=== PATIENT | female | born 1995 | race Caucasian/White ===

== ENCOUNTER 2016-10-31 17:35 | Emergency (ER) | payer OTHER ==
[~2016-10-31] VITALS: Ht 154.9 cm; Wt 95.2 kg
[~2016-10-31 17:35] MED LIST: C-500500 MG; PRENATAL-FOLIC1 EACH PO
== END 2016-10-31 18:38 | disposition home or self-care (01) ==
LOC: ED 17:35
DX: G43.909 Migraine, unspecified, not intractable, without status migrainosus (principal); Z88.1 Allergy status to other antibiotic agents
CPT/HCPCS: 96374; 96375; 99283; J1200; J1885; J2765

== ENCOUNTER 2019-03-12 12:26 | Observation (INO) | payer OTHER ==
[~2019-03-12] VITALS: Ht 154.9 cm; Wt 99.0 kg
--- NOTE | 2019-03-12 17:17 | NUR ---
PATIENT ADMITTED TO MED SURG. PATIENT IS NPO, SCD'S IN PLACE. LR INFUSING AT 125ML/HR TO LEFT AC. PATIENT REPORTS MINIMAL ABDOMINAL DISCOMFORT 3-4/10 AND DENIES NEEDING MEDICATIONS AT THIS TIME.
--- NOTE | 2019-03-12 18:27 | NUR ---
DR. ARREDONDO IN TO SEE PATIENT. PATIENT TO BE NPO AT MIDNIGHT, PLAN FOR SURGERY TOMORROW TO FOLLOW. PATIENT IS HAVING CLEAR LIQUIDS AT THIS TIME.
--- NOTE | 2019-03-12 20:14 | NUR ---
SURGERY CONSENT SIGNED, DR ARREDONDO HERE EARLIER TO ASSESS PT. PT TO BE NPO AFTER MIDNIGHT, PT AWARE. IS AT BEDSIDE, SCDS ON. TOLERATING CLEAR LIQUIDS, VOIDING QS CLEAR URINE. IVF INFUSING LAC. NO C/O CORADO OR N/V. COOPERATIVE WITH ASSESSMENT
--- NOTE | 2019-03-12 20:15 | EKG ---
[facility] [address] [facility] [place], [place] [address] Signed Unusual P axis, possible ectopic atrial tachycardia Abnormal ECG No previous ECGs available Confirmed by DANIEL JOHNSON DO ([id number]) on 03/12/2019 8:15:48 PM Electronically Signed By: DANIEL JOHNSON DO 03/12/19 2015 PATIENT NAME: LACY ZAVALETA Electrocardiogram DATE OF : [birth year] PHYSICIAN: DANIEL JOHNSON DO REPORT #: [id number] REPORT IS CONFIDENTIAL AND NOT TO BE RELEASED WITHOUT AUTHORIZATION
--- NOTE | 2019-03-12 23:04 | NUR ---
RESTING, NO C/O PAIN OR N/V, IVF INFUSING, CALL LIGHT AT BEDSIDE, FAMILY IN ROOM
--- NOTE | 2019-03-13 01:29 | NUR ---
awakes easily, no c/o abd pain or n/v. Up to br voiding qs yellow urine. IVf infusing, NPO since midnight, oral care done by self. turns self in bed, call light at bedside. scds off at her requests,
--- NOTE | 2019-03-13 05:01 | NUR ---
PT HAS SLEPT MOST OF THIS SHIFT. NPO SINCE MIDNIGHT FOR AM SURGERY. SWABS AT BEDSIDE, PT DOES OWN ORAL CARE. INDEPENDENT IN ROOM. HAS DENIED NEED FOR PAIN MEDS OR N/V. HAS TOLERATED IVF WELL AND IV ABX. VOIDING LARGE AMOUNTS OF CLEAR YELLOW URINE. CALL LIGHT AT BEDSIDE, SCDS ON. FAMILY AT BEDSIDE
--- NOTE | 2019-03-13 06:44 | NUR ---
PT HAS SLEPT MOST OF THIS SHIFT. NPO SINCE MIDNIGHT FOR AM SURGERY. SWABS AT BEDSIDE, PT DOES OWN ORAL CARE. INDEPENDENT IN ROOM. HAS DENIED NEED FOR PAIN MEDS OR N/V. HAS TOLERATED IVF WELL AND IV ABX. VOIDING LARGE AMOUNTS OF ARA YELLOW URINE. CALL LIGHT AT BEDSIDE, SCDS ON. FAMILY AT BEDSIDEPT HAS SLEPT MOST OF THIS SHIFT. NPO SINCE MIDNIGHT FOR AM SURGERY. SWABS AT BEDSIDE, PT DOES OWN ORAL CARE. INDEPENDENT IN ROOM. HAS DENIED NEED FOR PAIN MEDS OR N/V. HAS TOLERATED IVF WELL AND IV ABX. VOIDING LARGE AMOUNTS OF ARA YELLOW URINE. CALL LIGHT AT BEDSIDE, SCDS ON. FAMILY AT BEDSIDE
--- NOTE | 2019-03-13 07:25 | NUR ---
HANDOFF REPORT RECEIVED FROM DOOR ATTENDANT RN.
--- NOTE | 2019-03-13 08:05 | NUR ---
IV SALINE LOCKED FOR HEBICLEANSE SHOWER.
--- NOTE | 2019-03-13 08:38 | NUR ---
PATIENT TOOK A HEBICLEMS SHOWER.
--- NOTE | 2019-03-13 08:50 | NUR ---
PT RESTING IN BED. PT ON ROOM AIR, LUNG SOUNDS CLEAR. PT DENIES PAIN AT THIS TIME. PT NPO FOR SURGERY, BOWEL TONES ACTIVE. CMS INTACT, WITHOUT EDEMA. IV FLUIDS RESUMED, IV PEPCID GIVEN. DISCUSSED PLAN OF CARE FOR THE DAY. PT DENIES OTHER NEEDS AT THIS TIME.
--- NOTE | 2019-03-13 10:30 | NUR ---
SPOKE WITH PATIENT AND BOYFRIEND MAYLIN IN ROOM. PATIENT LIVES WITH MAYLIN AND TWO YOUNG SONS. SHE PLANS TO RETURN AND FEELS SAFE TO RETURN HOME AT DISCHARGE. SHE IS EMPLOYED. FEELS SHE HAS ALL SHE NEEDS TO RETURN HOME. MAYLIN WILL DRIVE HER HOME. SHE UNDERSTANDS DIAGNOSIS AND POST-OP EXPECTATIONS. WILL FOLLOW NEEDED.
--- NOTE | 2019-03-13 13:48 | NUR ---
PT TO DAYSURGERY WITH RN SALOME. IV ON STRAIGHT TUBING, ANCEF WITH PT FOR PREOP DOSE.
--- NOTE | 2019-03-13 16:02 | NUR ---
03/13/19 1602 Katie Chapman [id number]- PT ARRIVES TO PACU TRYING TO GRAB AT HER FACE AND REMOVE EQUIPMENT. PT REPORTS SHE IS TOO HOT, BLANKETS REMOVED. PT DOES NOT STATE IF SHE IS IN PAIN WHEN ASKED, JUST STATES SHE IS TOO HOT. PT PROVIDED WITH COOL AIR VIA THE OSMANY PAWS.
[2019-03-13] MEDS ORDERED: MOTRIN IB200 MG PO (16:14)
[2019-03-13] MEDS ORDERED: TYLENOL EXTRA500 MG PO (16:14)
[2019-03-13] MEDS ORDERED: PERCOCET 7.5-31 EACH PO (16:16)
--- NOTE | 2019-03-13 16:20 | HP ---
[facility] [address] [place], [place] [address] Signed ADMISSION DATE: 03/12/2019 REASON FOR ADMISSION: Acute calculous cholecystitis. HISTORY OF PRESENT ILLNESS: This obese 23-year-old white woman is admitted to the hospital having presented to the emergency room and evaluated by Dr. Pruitt with upper abdominal and epigastric pain with radiation into the right subscapular area. She has been under the impression she had reflux disease and has been taking Tums and Mylanta over time with little benefit. She presented to the emergency room where she was evaluated with epigastric pain and underwent a gallbladder ultrasound showing at least two gallstones and clinical findings suggestive of acute cholecystitis. This included a CBC with a white count of 14,000, hematocrit of 33. Normal liver enzymes. Negative beta HCG and normal lipase. PAST MEDICAL HISTORY: Rather unremarkable. She takes no medications on an ongoing basis. She has had two children in the past. 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 She is unmarried and has two children. She does not smoke. Does not use alcohol. Occasionally uses marijuana. Since readmission, she has felt somewhat better with rehydration. She still has some back pain on the right side and some epigastric pain. No nausea or vomiting. No fever or chills. REVIEW OF SYSTEMS: Denies any shortness of breath or chest pain. She has had no dysphagia, dysuria, hematemesis, or blood per rectum. PHYSICAL EXAMINATION: GENERAL: This is an obese white woman, who looks to be comfortable at this time. VITAL SIGNS: Temperature is 97.7, pulse 93, respirations 20, blood pressure 110/64. NECK: Shows no thyromegaly or cervical adenopathy. Trachea is midline. Mucous membranes are reasonably moist. CHEST: Clear. HEART: Regular without murmur. ABDOMEN: Obese, but soft. There is epigastric tenderness and right subcostal tenderness, but no mass. No ascites. EXTREMITIES: Show no clubbing, cyanosis, or edema. Sequential compression device Electronically Signed By: AMBIKA ARREDONDO MD 03/13/19 1620 PATIENT NAME: LACY ZAVALETA HISTORY AND PHYSICAL DATE OF : [birth year] REPORT #: [id number] PHYSICIAN: AMBIKA ARREDONDO MD PCP: NO PRIMARY CARE PHYSICIAN REPORT IS CONFIDENTIAL AND NOT TO BE RELEASED WITHOUT AUTHORIZATION [facility] [address] [place], [place] [address] [address] in [address]. LABORATORY STUDIES: Show a white count of 14.1, hematocrit 33, platelets 676,000. Chem profile is normal. Bilirubin is 0.3. Liver enzymes normal. Globulin 3.9, lipase 8. Beta-hCG is negative. I have reviewed her imaging study, which include a gallbladder ultrasound and apparently mobile radiodensity is noted within the gallbladder. The back wall of the gallbladder is visible, which in my view is suggestive of a low-grade inflammation. ASSESSMENT: She has clinical and ultrasonographic evidence of cholelithiasis and probable acute cholecystitis with elevated white count, persistent epigastric and right subcostal pain radiating to the subscapular area. She has been given a gallbladder owners manual and has reviewed it. We discussed the pathophysiology of biliary disease and recommendation of treatment to include cholecystectomy, preferably by laparoscopic approach. The risks of bleeding, infection, bile duct injury, need for open procedure, and other unforeseen complication was reviewed in detail. It is notable she has no other family members with biliary disease including four sisters and two brothers. She is at increased risk on the basis of her obesity and having given childbirth. I think she could handle some clear liquids tonight as she strongly desires and certainly n.p.o. after midnight. She is treated with Ancef q.8 hours and other medications will be initiated as appropriate, anticipating surgery tomorrow. MD CRISTOBAL Escobar/BALJINDERL /[id number] cc: Manas Pruitt MD Electronically Signed By: AMBIKA ARREDONDO MD 03/13/19 1620 PATIENT NAME: LACY ZAVALETA HISTORY AND PHYSICAL DATE OF : [birth year] REPORT #: [id number] PHYSICIAN: AMBIKA ARREDONDO MD PCP: NO PRIMARY CARE PHYSICIAN REPORT IS CONFIDENTIAL AND NOT TO BE RELEASED WITHOUT AUTHORIZATION [facility] [address] [place] [address] Signed Copies: MANAS PRUITT MD ~ Electronically Signed By: AMBIKA ARREDONDO MD 03/13/19 1620 PATIENT NAME: STAR ZAVALETASARIKA MARIEE HISTORY AND PHYSICAL DATE OF : [birth year] REPORT #: [id number] PHYSICIAN: AMBIKA ARREDONDO MD PCP: NO PRIMARY CARE PHYSICIAN REPORT IS CONFIDENTIAL AND NOT TO BE RELEASED WITHOUT AUTHORIZATION
--- NOTE | 2019-03-13 17:06 | NUR ---
PT RECEIVED FROM PACU. PT DROWSY, AROUSABLE TO VOICE. PT COMPLAINT OF FEELING HOT, FAN PROVIDED. PT COMPLAINT OF FEELING NAUSEATED, GIVEN 4 MG IV ZOFRAN. ICE PACKS APPLIED TO ABD. PT ON ROOM AIR, LUNG SOUNDS CLEAR. BOWEL TONES HYPOACTIVE. CMS INTACT, SCDS IN PLACE. VSS. PT PROVIDED SIPS OF WATER. DISCUSSED PLAN OF CARE WITH SPOUSE, UPDATED THAT MAY STAY OVERNIGHT PER DR. ARREDONDO IF CRITERIA ARE NOT MET.
--- NOTE | 2019-03-13 17:59 | NUR ---
PT RESTINGIN BED. PT COMPLAINT OF PAIN 7-8/ TO BACK AND ABD, GIVEN IV TORADOL. VSS. PT CONTINUES TO FEEL "HOT", AFEBRILE, SCDS REMOVED FOR COMFORT. RX PROVIDED TO SPOUS TO BE FILLED, EMPHASIZED THAT AT THIS POINT DISCHARGE IS UNLIKELY DUE TO THE WAY PT IF FEELING, VERBALIZED UNDERSTANDING. PT DENIES OTHER NEEDS AT THIS TIME.
--- NOTE | 2019-03-13 18:41 | NUR ---
PT CONTINUES TO REPORT NAUSEA, REQUESTING SPRITE AND CRACKERS, PROVIDED. PT GIVEN SECOND DOSE OF 4 MG IV ZOFRAN FOR TOTAL OF 8MG ZOFRAN PER ORDER. PT ASSISTED TO BATHROOM, SBA, VOIDED. STERISTRIPS TO UMBILICUS FELL OFF, REPLACED, SECURED WITH GAUZE AND TAPE. PT STATES PAIN IMPROVED AFTER TORADOL. PT DENIES OTHER NEEDS AT THIS TIME.
--- NOTE | 2019-03-13 20:05 | NUR ---
MICROFILM MOUNTER ROUNDING NOTE. PT'S SIGNIFICANT OTHER CALLS AND REQUESTS WARM BLANKET FOR PT. PROVIDED. PT RESTING IN BED ON HER STOMACH, RESPONDS MINIMALLY TO INTERNAL WHOLESALER. THERMOSTAT INCREASED AND SANDWHICH BOXES ORDERED REQUESTED. FURTHER NEEDS DENIED AT THIS TIME. CALL LIGHT IN REACH.
--- NOTE | 2019-03-13 20:29 | NUR ---
Coop with assessment. 4 lap sites w3 of them w ss in place, old drainage, dry. umbilical area lap site with gauze and scant amount of ss drainage. replaced. CINTHIA. burping, denies passing gas at this time. Lungs clear bilat. IV LAC infusing w/o problems. tolerating liquids well, sandwich box given on requests. no further c/o n/v or pain at this time.Up to BR with help, voided 400cc clear yellow urine. call light at bedside, family rooming in
--- NOTE | 2019-03-13 21:44 | NUR ---
coop with assessment. HOB elevated to her comfort. lungs clears bilat , on room air. SL LW intact, flushes well. Large R hip/flank hematoma with edges marked, tender firm to touch. moves leg well, scds in place. L below the knee hematoma marked, tender. foot crompression in place. moves leg well. Pt in bed. Incontinent of urine, dry at this time. No c/o n/v or pain. Tolerating liquids well. Call light at hands reach. family in room, watching tv.
--- NOTE | 2019-03-14 01:06 | NUR ---
up to br voiding large amount of clear yellow urine. Back to be. c/o 10/15 abd pain. Medicated with Ibuprofen 600mg po and 1 Stow tab per pain. lap sites intact, burping, denies passing gas, no bm. Tolerating liquids very well, no further c/o n/v. Call light at hands reach. family in room.
--- NOTE | 2019-03-14 04:11 | NUR ---
resting, laying on her stomach, no distress, resp even and unlabored. No further c/o pain or n/v. family in room
--- NOTE | 2019-03-14 05:18 | NUR ---
Pt has been sleeping most of this shift. Was medicated x1 with Motrin and Percocet per abd pain with good pain, was medicated at begining of shift with Phenergan, effective, no further c/o n/v. 4 abd lap sites intact with old drainage. burping, denies passing gas. up ti br w/o help, voiding large amounts of clear yellow urine, tolerating regular siet and fluids. Family in room. Pt to be dc'd today, family already picked up her dc Rx from retail pharmacy.
--- NOTE | 2019-03-14 06:36 | NUR ---
Resting, no further c/opain. no n/v, has voided Qs, Tolerating diet well
--- NOTE | 2019-03-14 07:03 | NUR ---
PATIENT WAS UP ONCE DURING THE NIGHT, FRESH WATER WAS GIVEN CALL LIGHT IN REACH
--- NOTE | 2019-03-14 07:20 | NUR ---
BEDSIDE HANDOFF REPORT RECEIVED FROM CONTRACT SERVICEMAN RN. PT DRESSED AND MOVING INDEPENDENTLY IN THE ROOM. PT LOOKING FORWARD TO DISCHARGE THIS AM. DISCUSSED EATING BREAKFAST THIS MORNING AND THEN TO DISCHARGE SHORTLY AFTER. PT DENIES OTHER NEEDS AT THIS TIME.
--- NOTE | 2019-03-14 08:57 | NUR ---
PT RESTINGIN BED, SPOUSE AT BEDIDE, AWAITING BREAKFAST TRAY TO ARRIVE. PT ONR OOM AIR, LUNG SOUNDS CLEAR. PT RATING PAIN 4/10, GIVEN PERCOCET AND MORTIN, DISCUSSED PAIN MANAGEMENT AT HOME. BOWEL TONES ACTIVE, DENIES NAUSEA. LAP SITES X4, GAUZE TO UMBILICAL SITE WITH DRIED DRAINAGE. DISCUSSED WOUND CARE AND SHOWERING WITH PT. CMS INTACT, WITHOUT EDEMA. DR. ARREDONDO WISHES TO SEE PT BEFORE DISCHARGE. PT DENIES OTHER NEEDS AT THIS TIME.
--- NOTE | 2019-03-14 10:14 | OR ---
[facility] [address] [place], [place] [address] Signed DATE OF OPERATION: 03/13/2019 SURGEON: Ambika Arredondo MD PREOPERATIVE DIAGNOSIS: Acute calculous cholecystitis. POSTOPERATIVE DIAGNOSIS: Acute calculous cholecystitis. PROCEDURES: 1. Laparoscopic cholecystectomy with intraoperative cholangiogram. 2. Surgeon-directed fluoroscopy. ANESTHESIA: General endotracheal, Gladis Nelson CRNA, and local 20 mL of 0.25% Marcaine with epinephrine. INDICATION: This 23-year-old white woman presented to the emergency room yesterday with several days of increasing right upper abdominal and right subscapular pain. She has had similar episodes in the past. Evaluation includes a gallbladder ultrasound, which showed multiple gallstones in the gallbladder. She has been admitted to the hospital, fluid resuscitated and given intravenous antibiotics, parenteral pain medication and so forth and is now ready to undergo cholecystectomy. The risks of bleeding, infection, bile duct injury, need for open procedure, failure to cure her symptoms, and need for other indicated procedures was all reviewed with her. She understands and wished to proceed. FINDINGS: Indeed the gallbladder was acutely inflamed. There was no sign of gangrene, however. The liver was normal. Intraoperative cholangiogram was normal. There were three yellow mulberry gallstones noted in the gallbladder once it was excised. Cholangiogram was normal. There were no other findings of concern. DESCRIPTION OF PROCEDURE: The patient was brought to the operating room, given a general endotracheal anesthetic. Preoperative antibiotic Ancef had been given. Sequential compression device stockings were used and heparin subcutaneously administered. After satisfactory general endotracheal anesthesia, the abdomen was prepared with Electronically Signed By: AMBIKA ARREDONDO MD 03/14/19 1014 PATIENT NAME: LACY ZAVALETA OPERATIVE REPORT DATE OF : [birth year] REPORT #: [id number] PHYSICIAN: AMBIKA ARREDONDO MD PCP: NO PRIMARY CARE PHYSICIAN REPORT IS CONFIDENTIAL AND NOT TO BE RELEASED WITHOUT AUTHORIZATION [facility] [address] [place], [place] [address] Signed chlorhexidine solution and draped sterilely. An infraumbilical incision was made and using an open Nory cannula technique, pneumoperitoneum was achieved to a level of 14 mmHg of carbon dioxide gas. Intraabdominal inspection showed no sign of ascites or carcinomatosis. Three additional trocars were placed in usual configuration in the subxiphoid, right midclavicular, and right anterior axillary line. The gallbladder was elevated cephalad and retracted laterally and using blunt and electrocautery dissection, the triangle of Calot was dissected free. It appeared that one of the 1 cm stones was wedged in the infundibulum at the cystic duct junction. Ultimately, the cystic duct was well defined from the surrounding soft tissue. Clips were applied to the cystic arterial branches as necessary. The cystic duct was milked in a retrograde fashion allowing for application of a hemoclip much higher. A transverse choledochotomy was made in the cystic duct and using intraoperative cholangiography, free flow of contrast was noted into the biliary tree with prompt emptying into the duodenum. There was no sign of biliary defect, filling defect, biliary anomalies, or other abnormality. The catheter was removed and the cystic duct was triply clipped and divided and the gallbladder was then dissected free in a retrograde fashion using electrocautery. The gallbladder was placed in an endobag and extracted through the infraumbilical port site without problem, opened on the back table and found to have subacute inflammatory changes as well as three yellow mulberry gallstones about a centimeter in size each. Irrigation was undertaken with subhepatic space. There was no sign of bile leak, bleeding, or other problems. The trocars were removed under direct visualization showing no bleeding. The infraumbilical fascial incision was reapproximated with interrupted 3-0 Vicryl suture. All wounds copiously irrigated with saline solution. Skin closed with interrupted 3-0 Vicryl. Steri-Strips were applied. The patient was ultimately extubated and transferred to recovery room in good condition having suffered no complications. Sponge, needle, and instrument counts were reported as correct x3. Ambika Arredondo MD JM/MODL /[id number] Copies: Electronically Signed By: AMBIKA ARREDONDO MD 03/14/19 1014 PATIENT NAME: LACY ZAVALETA OPERATIVE REPORT DATE OF : [birth year] REPORT #: [id number] PHYSICIAN: AMBIKA ARREDONDO MD PCP: NO PRIMARY CARE PHYSICIAN REPORT IS CONFIDENTIAL AND NOT TO BE RELEASED WITHOUT AUTHORIZATION [facility] [address] [place] [id number] Signed ~ Electronically Signed By: AMBIKA ARREDONDO MD 03/14/19 1014 PATIENT NAME: WAQARLACY OPERATIVE REPORT DATE OF : [birth year] REPORT #: [id number] PHYSICIAN: AMBIKA ARREDONDO MD PCP: NO PRIMARY CARE PHYSICIAN REPORT IS CONFIDENTIAL AND NOT TO BE RELEASED WITHOUT AUTHORIZATION
--- NOTE | 2019-03-15 14:20 | DS ---
[facility] [address] [place], [place] [address] Signed ADMISSION DATE: 03/12/2019 DISCHARGE DATE: 03/14/2019 REASON FOR ADMISSION: This obese 23-year-old white woman was admitted to the hospital, having presented to the emergency room, evaluated by Dr. Pruitt with upper abdominal pain. Evaluation included a gallbladder ultrasound showing gallstones and clinical findings of acute cholecystitis. Liver enzymes are normal. White count was elevated to 14,000. PERTINENT PHYSICAL EXAMINATION: GENERAL: On admission, obese white woman, looking comfortable overall. VITAL SIGNS: Temperature 97.7, pulse 93, respirations 20, and blood pressure 110/64. CHEST: Clear. HEART: Regular without murmur. ABDOMEN: Obese but soft. There is tenderness in epigastric and right subcostal area. There is no mass. No ascites. HOSPITAL COURSE: She is admitted, given intravenous fluid resuscitation, parenteral pain medication, IV antibiotics. On March 13, 2019, underwent laparoscopic cholecystectomy with intraoperative cholangiogram. She was found to have an acutely inflamed gallbladder. There were three yellow 1 cm mulberry style gallstones. Cholangiogram was normal. She tolerated procedure well, but postoperatively had a fair amount of nausea and on that basis, was kept in the hospital overnight. She is able to be discharged today, March 14, 2019, as she was tolerating regular diet well. DISCHARGE MEDICATIONS: Her discharge medications will include: 1. Motrin 600 mg p.o. q.6 hours p.r.n. pain, #30. 2. Tylenol 1000 mg p.o. q.6 hours p.r.n. pain. 3. Percocet 7.5/325 one to two p.o. q.4 hours as needed for pain, #10. FOLLOWUP PLANS: She is return to see me in approximately 4 weeks. She is able to return to work in a week. Paperwork was written to that effect. She should lift no more than 20 pounds for the next 2 weeks. DISCHARGE DIAGNOSES: 1. Acute calculous cholecystitis. 2. Status post laparoscopic cholecystectomy with intraoperative cholangiogram on March 13, 2019. Electronically Signed By: AMBIKA ARREDONDO MD 03/15/19 1420 PATIENT NAME: LACY ZAVALETA DISCHARGE SUMMARY DATE OF : [birth year] REPORT #: [id number] PHYSICIAN: AMBIKA ARREDONDO MD PCP: NO PRIMARY CARE PHYSICIAN REPORT IS CONFIDENTIAL AND NOT TO BE RELEASED WITHOUT AUTHORIZATION [address] [address] Signed 3. Obesity. MD CRISTOBAL Escobar/MODL /[id number] cc: Manas Pruitt MD Copies: MANAS PRUITT MD ~ Electronically Signed By: AMBIKA ARREDONDO MD 03/15/19 1420 PATIENT NAME: LACY ZAVALETA DISCHARGE SUMMARY DATE OF : [birth year] REPORT #: [id number] PHYSICIAN: AMBIKA ARREDONDO MD PCP: NO PRIMARY CARE PHYSICIAN REPORT IS CONFIDENTIAL AND NOT TO BE RELEASED WITHOUT AUTHORIZATION
--- NOTE | 2019-03-17 13:24 | PATH ---
[facility] [address] [place], [place] [address] Signed SPECIMEN(S): A GALLBLADDER AND STONES SPECIMEN SOURCE: A. GALLBLADDER AND STONES CLINICAL HISTORY: RUQ and epigastric pain. FINAL PATHOLOGIC DIAGNOSIS: Gallbladder, cholecystectomy: - Moderate acute and chronic cholecystitis. - Cholelithiasis. - Cholesterolosis. PEARLA:gorge:C2NR MICROSCOPIC EXAMINATION: Histologic sections of all submitted blocks are examined by light microscopy. These findings, together with the gross examination, support the pathologic diagnosis. GROSS DESCRIPTION: The specimen is received in a formalin-filled specimen container labeled "SE". A previously opened gallbladder is 6.5 x 2.5 cm. The serosa is smooth and green flores. The clamped cystic duct surgical margin is patent. The wall is fatty and focally thickened to 1 cm. The mucosa is flores and velvety with scattered slightly raised yellow flecks. There is no nodule or induration. Within the specimen container are several nodular yellow calculi up to 0.8 cm. Three energy conservation representative sections are submitted in cassette (A1). GW (under the direct supervision of a pathologist) The Gross Description was prepared using a voice recognition system. The report was reviewed for accuracy; however, sound-alike word errors, addition and/or deletions may occur. If there is any question about this report, please contact Client Services. PERFORMING LABORATORY: The technical component was performed by [facility], [address] [place] [id number] (Superintendent Plant: Ivis Romero MD; CLIA# [id number]). [facility] [address] [address] (Superintendent Plant: Toro Dietz MD; CLIA# PATIENT NAME: LACY ZAVALETA PATHOLOGY DATE OF : [birth year] REPORT #: [id number] PHYSICIAN: [facility] PCP: NO PRIMARY CARE PHYSICIAN REPORT IS CONFIDENTIAL AND NOT TO BE RELEASED WITHOUT AUTHORIZATION [address] [place] [address] Signed [id number]). Diagnostician: Toro Dietz MD Pathologist Electronically Signed 03/17/2019 Copies: ~ PATIENT NAME: LACY ZAVALETA PATHOLOGY DATE OF : [birth year] REPORT #: [id number] PHYSICIAN: [facility] PCP: NO PRIMARY CARE PHYSICIAN REPORT IS CONFIDENTIAL AND NOT TO BE RELEASED WITHOUT AUTHORIZATION
== END 2019-03-14 10:25 | disposition home or self-care (01) ==
LOC: ED 12:26 → MS 12:28
PROVIDERS: ADMIT Surgery
PROC: BF101ZZ Fluoroscopy of Bile Ducts using Low Osmolar Contrast (ICD-10-PCS; 2019-03-13)
PROC: 0FT44ZZ Resection of Gallbladder, Percutaneous Endoscopic Approach (ICD-10-PCS; principal; 2019-03-13 13:00)
DX: K80.12 Calculus of gallbladder with acute and chronic cholecystitis without obstruction (principal); E66.01 Morbid (severe) obesity due to excess calories; Z88.2 Allergy status to sulfonamides; Z68.41 Body mass index [BMI] 40.0-44.9, adult
CPT/HCPCS: 00790; 36415; 74300; 76705; 80053; 83690; 84703; 85025; 93005; 93010; 96361; 96372; 96374; 96375; 96376; 99285-25; A9270; G0378; J0131; J0330; J0690; J1100; J1644; J1885; J2060; J2405; J2550; J2704; J3010; J7030; J7121; Q9967

== ENCOUNTER 2020-09-13 15:30 | Emergency (ER) | payer OTHER ==
[~2020-09-13] VITALS: Ht 154.9 cm; Wt 95.2 kg
[~2020-09-13 15:30] MED LIST changes: +MOTRIN IB200 MG PO; +PERCOCET 7.5-31 EACH PO; +TYLENOL EXTRA500 MG PO
--- NOTE | 2020-09-14 13:34 | EKG ---
[facility] [address] [place] [address] Signed Normal sinus rhythm with sinus arrhythmia Normal ECG When compared with ECG of 12-MAR-2019 12:30, Sinus rhythm has replaced Ectopic atrial rhythm Confirmed by SUSHIL MARSHALL MD ([id number]) on 09/14/2020 1:34:22 PM Electronically Signed By: SUSHIL MARSHALL MD 09/14/20 1334 PATIENT NAME: WAQARLACYLUIS MARIEE Electrocardiogram DATE OF : [birth year] PHYSICIAN: SUSHIL MARSHALL MD REPORT #: [id number] REPORT IS CONFIDENTIAL AND NOT TO BE RELEASED WITHOUT AUTHORIZATION
== END 2020-09-13 21:02 | disposition home or self-care (01) ==
LOC: ED 15:30
DX: R00.2 Palpitations (principal); Z88.1 Allergy status to other antibiotic agents
CPT/HCPCS: 71045; 80053; 83735; 84484; 84703; 85025; 85379; 93005; 93010; 99285-25

== ENCOUNTER 2022-12-25 21:25 | Emergency (ER) | payer OTHER ==
[~2022-12-25] VITALS: Ht 154.9 cm; Wt 97.0 kg
--- OUTSIDE RECORDS SUMMARY | ~2022-12-25 | XMS | Continuity of Care Document ---
Demographics + + + | Address | [address] | | | [place] [address] | + + + | Preferred Language | Unknown | + + + | Marital Status | | + + + | Mandaen Affiliation | Unknown | + + + | Race | White | + + + | Ethnic Group | Not or | + + + Author + + + | Author | [facility] | + + + | Organization | [facility] | + + + | Address | [address] | | | [place] [address] | + + + | Phone | | + + + Care Team Providers + + + + | Care Pilates Coordinator Name | Role | Phone | + + + + Unavailable | Unavailable | + + + + Unavailable | Unavailable | + + + + Allergies and Intolerances + + + + + + | date | description | facility | reaction | severity | + + + + + + | (no date) | Clindamycin [facility] | (no reaction) | (no severity) | [facility] | | | + + + + + + | (no date) | Clindamycin | [facility] | (no reaction) | (no severity) | [facility] | | | + + + + + + | (no date) | Clindamycin | [facility] | (no reaction) | (no severity) | | | [facility] | | | + + + + + + | (no date) | clindamycin | [facility] | (no reaction) | (no severity) | + + + + + + Encounters No information. Functional Status No information. Immunizations + + + + | date | description | facility | + + + + | 2022-12-21 00:00 | Influenza, Injectable, | [facility] | | | Quadrivalent | | + + + + Medications + + + + | date | description | facility | + + + + | 2019-03-13 00:00 | OXYCODONE | [facility] | | | HCL/ACETAMINOPHEN | | + + + + | 2019-03-13 00:00 | ACETAMINOPHEN | [facility] | + + + + | 2022-12-21 00:00 | ASCORBIC ACID | [facility] | + + + + | 2019-03-13 00:00 | IBUPROFEN | [facility] | + + + + Problems + + + + | date | description | facility | + + + + | 2016-10-31 00:00 | Migraine headache | [facility] | + + + + | 2016-10-31 00:00 | Headache | [facility] | + + + + | 2019-03-12 00:00 | Biliary colic | [facility] | + + + + | 2020-09-13 00:00 | Palpitations | [facility] | + + + + | 2020-09-13 00:00 | Chest pain | [facility] | + + + + | 2022-11-13 19:16 | ENCOUNTER FOR SUPRVSN OF | [facility] | | | NORMAL PREGNANC | | + + + + | 2022-11-13 19:16 | ENCOUNTER FOR SUPRVSN OF | [facility] | | | NORMAL , FIRST | | | | TRIMESTER | | + + + + | 2022-11-13 19:30 | ENCOUNTER FOR SUPRVSN OF | [facility] | | | NORMAL PREGNANC | | + + + + | 2022-12-04 07:47 | PALPITATIONS | [facility] | + + + + | 2022-12-04 08:00 | PALPITATIONS | [facility] | + + + + | 2022-12-21 00:00 | Patient left without being | [facility] | | | seen | | + + + + Procedures No information. Results/Labs No information. Social History No information. Vital Signs + + + +---------+ | date | measurement | value | units | + + + +---------+ | 2022-12-21 00:00 | BMI | 41.2 | kg/m2 | + + + +---------+ | 2022-12-21 00:00 | BP_diastolic | 00 | mmHg | + + + +---------+ | 2022-12-21 00:00 | BP_systolic | 00 | mmHg | + + + +---------+ | 2022-12-21 00:00 | heart_rate | 00 | /min | + + + +---------+ | 2022-12-21 00:00 | height_metric | 154.94 | cm | + + + +---------+ | 2022-12-21 00:00 | height_standard | 61 | in | + + + +---------+ | 2022-12-21 00:00 | o2_saturation | 00 | % | + + + +---------+ | 2022-12-21 00:00 | respiration_rate | 00 | /min | + + + +---------+ | 2022-12-21 00:00 | temperature_metric | -17.78 | C | | | | | | + + + +---------+ | 2022-12-21 00:00 | | 0 | F | | | temperature_standar | | | | | d | | | + + + +---------+ | 2022-12-21 00:00 | weight_metric | 98.8 | kg | + + + +---------+ | 2022-12-21 00:00 | weight_standard | 217.82 | lb | + + + +---------+"
--- OUTSIDE RECORDS SUMMARY | ~2022-12-25 | XMS | Continuity of Care Document ---
Demographics + + + | Address | [address] | | | [place] [address] | + + + | Preferred Language | Unknown | + + + | Marital Status | | + + + | Worship Affiliation | Unknown | + + + | Race | White | + + + | Ethnic Group | Not or | + + + Author + + + | Author | [facility] | + + + | Organization | [facility] | + + + | Address | [address] | | | [place] [address] | + + + | Phone | | + + + Care Team Providers + + + + | Care Kiln Car Repairer Name | Role | Phone | + [...] 2022-12-21 00:00 | Influenza, Injectable, | [facility] | | | Quadrivalent | | + + + + Medications + + + + | date | description | facility | + + + + | 2019-03-13 00:00 | OXYCODONE | [facility] | | | HCL/ACETAMINOPHEN | | + + + + | 2019-03-13 00:00 | ACETAMINOPHEN | [facility] | + + + + | 2022-12-21 00:00 | ASCORBIC ACID | [facility] | + + + + | 2019-03-13 00:00 | IBUPROFEN | [facility] | + + + + Problems + + + + | date | description | facility | + + + + | 2016-10-31 00:00 | Migraine headache | [facility] | + + + + | 2016-10-31 00:00 | Headache | [facility] | + + + + | 2019-03-12 00:00 | Biliary colic | [facility] | + + + + | 2020-09-13 00:00 | Palpitations | [facility] | + + + + | 2020-09-13 00:00 | Chest pain | [facility] | + + + + | [...] | Patient left without being | [facility] | | | seen | | + [...]
--- OUTSIDE RECORDS SUMMARY | 2022-12-25 21:30 | XMS ---
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 Jun VISIT COUNT (12 MO.) 2 [facility] TOTAL 2 NOTE: Visits indicate total known visits. ED/UCC VISIT TRACKING (12 MO.) 12/25/2022 21:26 [facility] TYPE: Emergency COMPLAINT: - DENTAL PAIN 12/21/2022 11:31 [facility] TYPE: Emergency COMPLAINT: - R EAR PAIN INPATIENT VISIT TRACKING (12 MO.) No inpatient visits to display in this time frame [email or web address]
[2022-12-25] MEDS ORDERED: AMOX TR-K CLV1 EAC1 PO (21:39)
[2022-12-25] MEDS ORDERED: PAXLOVID 300-11 EACH PO (21:40)
[2022-12-25] MEDS ORDERED: FEROSUL325 MG PO (21:40)
[2022-12-25] MEDS ORDERED: CEPHALEXIN500 M1 PO (22:18)
[2022-12-25 22:27] VITALS: BP 123/75
== END 2022-12-25 22:28 | disposition home or self-care (01) ==
LOC: ED 21:25
DX: K08.89 Other specified disorders of teeth and supporting structures (principal); K02.9 Dental caries, unspecified; Z88.1 Allergy status to other antibiotic agents
CPT/HCPCS: 99282; A9270

== ENCOUNTER 2023-05-23 00:01 | Inpatient (IN) | payer OTHER ==
[~2023-05-23] VITALS: Ht 154.9 cm; Wt 115.2 kg
[~2023-05-23 00:01] MED LIST changes: +AMOX TR-K CLV1 EAC1 PO; +CALCIUM CARBONATE 500 MG CHEW PO PRN; +CEPHALEXIN500 M1 PO; +FEROSUL325 MG PO; +LACTATED RINGER'S 1,000 ML IV SCH; +MAGNESIUM HYDROXIDE/AL HYDROX 30 ML CUP PO PRN; +PAXLOVID 300-11 EACH PO; +miSOPROStoL 25 MCG TAB PV SCH
[2023-05-23] MEDS ORDERED: LACTATED RINGER'S 1,000 ML IV PRN (00:15)
[2023-05-23] MEDS ORDERED: OXYTOCIN/DEXTROSE 5% 20 UNITS/100 ML BAG IV SCH (00:15)
[2023-05-23 00:43] LABS: HEMATOCRIT 33.5 % (35.0-50.0); HEMOGLOBIN 11.1 g/dL (12.0-18.0); MCH 24.5 (27-36); MCHC 33.2 g/dl (30-36); RBC 4.53 M/ul (4.3-5.7); RDW 15.8 (10.5-15.0)
[2023-05-23 01:00] LABS: AMPHETAMINES, URINE NEGATIVE (NEGATIVE); BARBITURATES, URINE NEGATIVE (NEGATIVE); BENZODIAZEPINE, URINE NEGATIVE (NEGATIVE); BUPRENORPHINE, URINE NEGATIVE (NEGATIVE); CANNABINOID, URINE NEGATIVE (NEGATIVE); COCAINE, URINE NEGATIVE (NEGATIVE); ECSTASY, URINE NEGATIVE (NEGATIVE); FENTANYL, URINE NEGATIVE (NEGATIVE); METHADONE, URINE NEGATIVE (NEGATIVE); OPIATES, URINE NEGATIVE (NEGATIVE); OXYCODONE, URINE NEGATIVE (NEGATIVE); PHENCYCLIDINE, URINE NEGATIVE (NEGATIVE)
[2023-05-23 01:18] LABS: ABO A; RH POSITIVE
[2023-05-23 01:19] LABS: ANTIBODY SCREEN NEGATIVE
[2023-05-23 02:44] VITALS: BP 140/82
--- NOTE | 2023-05-23 05:09 | PR ---
[facility] [address] [place], [place] [address] Signed Progress Notes IP Datetime Report Generated by EDUARD: 05/23/2023 05:09 PROGRESS NOTES: [id number] Impression: Normal Progression of Labor; Non-reassuring Heart Rate Plan: Deliver- Section Informed Consent Obtain: Section Delivery VITAL SIGNS: [id number] Vital Signs: Reviewed; Within Normal Limits EXAM: [id number] Effacement: 60 Station: -3 Contractions: q2-4 min MEMBRANES: [id number] Comments: Pt w/ initially improved FHT following AROM but now having recurrent deep variables. Pt recently ruptured for very large amount of clear fluid and do not think that amnioinfusion would be indicated at this point. Recommend proceeding with primary LTCS. Pt and understand and agree. OR crew notified and en route. Consents signed. Ancef 3 g. Pt w/ Azithromycin allergy and will not administer. GBS negative. All questions answered to the best of my ability and to pt's apparent satisfaction. FETUS A: [id number] FHR Baseline: 160 Variability: Moderate 6-25bpm Accelerations: None Decelerations: Variable FHR Category: Category II Presentation: Vertex FETUS B: [id number] Signing Physician: Jerri Zaman DO Copies: ~ *Electronically Signed* 05/23/23 0503 JERRI ZAMAN (FERNANDO) DO PATIENT NAME: LACY ACEVES PROGRESS NOTE DATE OF : [birth year] PHYSICIAN: JERRI ZAMAN (JD) DO RPT #: [id number] REPORT IS CONFIDENTIAL AND NOT TO BE RELEASED WITHOUT AUTHORIZATION
[2023-05-23] MEDS ORDERED: SOD+POT BICARB/CITRIC ACID 2 EA TABLET.EFF PO ONE (05:15)
[2023-05-23] MEDS ORDERED: LIDOCAINE HCL 2% 5 ML SDV ONE (05:22)
[2023-05-23] MEDS ORDERED: BUPIVACAINE 0.75% IN DEXTROSE 2 ML AMP ONE (05:22)
[2023-05-23] MEDS ORDERED: ondansetron HCL 4 MG/2 ML VIAL ONE (05:22)
[2023-05-23] MEDS ORDERED: MORPHINE SULFATE 1 MG/ML VIAL ONE (05:22)
[2023-05-23] MEDS ORDERED: OXYTOCIN 10 UNITS/ML VIAL ONE ×2 (05:22→06:02)
[2023-05-23] MEDS ORDERED: fentaNYL citrate 100 MCG/2 ML VIAL ONE (05:22)
[2023-05-23] MEDS ORDERED: LACTATED RINGER'S 1,000 ML IV ONE (06:01)
--- NOTE | 2023-05-23 06:09 | NUR ---
RT CALLED TO BE PRESENT FOR FOR BABY HAVING DECELLS. PRIOR TO DELIVERY NEOPUFF SET AT 25/4, SUCTION AT 100. ALL RESUCITATION EQUIPMENT EITHER SET UP OR PRESENT AT BEDSIDE. UPON ARRIVAL COLOR WAS BLUE, MODERATE CRY. SUCTIONED MOUTH AND NOSE WHILE BEING STIMULATED AND THEN PLACED OXIMETER ON RIGHT WRIST. SpO2 STAYED WITHIN NRP RANGES WITH NO NEED FOR O2. AT 5 MINUTE KEN COLOR SIGNIFICANTLY IMPROVED WITH STRONG CRY. RN RELEASED ME.
[2023-05-23] MEDS ORDERED: NALOXONE HCL 0.4 MG SYR IV PRN (06:15)
[2023-05-23] MEDS ORDERED: DEXAMETHASONE SOD PHOS 4 MG/ML VIAL ONE (06:15)
[2023-05-23] MEDS ORDERED: KETOROLAC TROMETHAMINE 30 MG/ML VIAL IV PRN (06:15)
[2023-05-23] MEDS ORDERED: ondansetron HCL 4 MG/2 ML VIAL IV PRN ×2 (06:15→07:00)
[2023-05-23] MEDS ORDERED: Ropivacaine HCl 0.5% 30 ML VIAL ONE (06:15)
[2023-05-23] MEDS ORDERED: SODIUM CHLORIDE 0.9% 20 ML IV ONE (06:15)
[2023-05-23] MEDS ORDERED: HYDROmorphone HCL 1 MG/ML SYR IV PRN (06:15)
[2023-05-23] MEDS ORDERED: PROCHLORPERAZINE EDISYLATE 10 MG/2 ML VIAL IV PRN ×2 (06:15→07:00)
[2023-05-23] MEDS ORDERED: diphenhydrAMINE HCL 50 MG/ML VIAL IV PRN (06:15)
[2023-05-23] MEDS ORDERED: LACTATED RINGER'S 1,000 ML IV SCH (06:52)
[2023-05-23] MEDS ORDERED: PROMETHAZINE HCL 25 MG SUPP PR PRN (07:00)
[2023-05-23] MEDS ORDERED: SIMETHICONE 125 MG TABLET CHEWABLE PO SCH (07:00)
[2023-05-23] MEDS ORDERED: PROMETHAZINE HCL 25 MG TAB PO PRN (07:00)
[2023-05-23] MEDS ORDERED: OXYCODONE HCL 5 MG TAB PO PRN (07:00)
[2023-05-23] MEDS ORDERED: bisacodyL 10 MG SUPP PR PRN (07:00)
[2023-05-23] MEDS ORDERED: OXYCODONE/APAP 5/325 TAB PO PRN (07:00)
[2023-05-23] MEDS ORDERED: CEFAZOLIN SODIUM 3 GM/30 ML SYR IV SCH (07:00)
[2023-05-23] MEDS ORDERED: METOCLOPRAMIDE HCL 10 MG/2 ML SDV IV PRN (07:00)
[2023-05-23] MEDS ORDERED: HYDROCODONE/ACETA 5/325 TAB PO PRN (07:00)
[2023-05-23] MEDS ORDERED: OXYTOCIN/0.9 % SODIUM CHLORIDE 500 ML IV SCH (07:00)
--- NOTE | 2023-05-23 07:09 | NUR ---
05/23/23 0709 Karen Porter 0649 PT ARRIVED TO ROOM WITH [facility] RN AT BEDSIDE. VSS. PT DENIES CONCERNS, HOB INCREASED SLIGHTLY AND PT DENIES PAIN. 0655 BABY ON CHEST WITH PT. HOB INCREASED AND PT CONTINUES TO DENY CONCERNS.
[2023-05-23 07:24] VITALS: BP 122/67
[2023-05-23] MEDS ORDERED: KETOROLAC TROMETHAMINE 30 MG/ML VIAL IV SCH (08:00)
[2023-05-23] MEDS ORDERED: SENNOSIDES/DOCUSATE 1 EA TAB PO SCH (09:00)
[2023-05-23] MEDS ORDERED: ENOXAPARIN SODIUM 40 MG/0.4 ML SYR SUB-Q ONE (17:45)
[2023-05-24] MEDS ORDERED: IBUPROFEN 600 MG TAB PO SCH (02:00)
[2023-05-24 05:24] LABS: HEMATOCRIT 29.8 % (35.0-50.0); HEMOGLOBIN 9.4 g/dL (12.0-18.0); MCH 23.6 (27-36); MCHC 31.6 g/dl (30-36); MCV 74.5 fl (81-99); RDW 15.7 (10.5-15.0)
[2023-05-24] MEDS ORDERED: ENOXAPARIN SODIUM 40 MG/0.4 ML SYR SUB-Q SCH ×2 (06:00→15:00)
--- NOTE | 2023-05-24 09:23 | PR ---
[facility] [address] [place], [place] [address] Signed PP Progress Notes Datetime Report Generated by CPN: 05/24/2023 09:23 SUBJECTIVE: [id number] Pain: Within Normal Limits Nausea/Vomiting: Denies Flatus: Yes Bowel Movement: No Vital Signs: [id number] Vital Signs: Reviewed; Within Normal Limits EXAM: Ongoing Cardiovascular: Not Done Abdomen/Uterus: Normal Lochia: Normal Vulva/Perineum: Not Done Breasts: Not Done CVA Tenderness: Not Done Extremities: Normal Incision: Normal Progress: Not Applicable IMPRESSION/PLAN/PROCEDURES: [id number] Impression: Normal Progression Plan: Continue Present Management Procedures: None Progress Notes: S: 27 yo s/p primary low transverse section. PPD/POD#1. Doing well. Denies PHILLIPS, CP, SOB, F/C, N/V, RUQ pain, changes in vision. Tolerating regular diet, ambulting, voiding own own, pain controlled, +flatus. O: AFVSS Abd: Soft, non tender. Incision C/D/I. No erythema or drainage. Musc: FERREIRA. Minimal edema of lower extremities. A/P: 27 yo s/p primary low transverse section. PPD/POD#1. Doing well. Will continue with routine care. Likely discharge home tomorrow AM. Signing Physician: Alis Billingsley MD Copies: ~ *Electronically Signed* 05/24/23 0923 ALIS BILLINGSLEY MD PATIENT NAME: LACY ACEVES PROGRESS NOTE DATE OF : [birth year] PHYSICIAN: ALIS BILLINGSLEY MD RPT #: [id number] REPORT IS CONFIDENTIAL AND NOT TO BE RELEASED WITHOUT AUTHORIZATION
--- NOTE | 2023-05-25 11:08 | PR ---
[facility] [address] [place], [place] [address] Signed PP Progress Notes Datetime Report Generated by EDUARD: 05/25/2023 11:08 SUBJECTIVE: [id number] Pain: Within Normal Limits Nausea/Vomiting: Denies Flatus: Yes Bowel Movement: Yes Vital Signs: [id number] Vital Signs: Reviewed; Within Normal Limits EXAM: Ongoing Cardiovascular: Not Done Respiratory: Not Done Abdomen/Uterus: Normal Lochia: Normal Vulva/Perineum: Not Done Breasts: Not Done CVA Tenderness: Not Done Extremities: Normal Incision: Normal Progress: Not Applicable IMPRESSION/PLAN/PROCEDURES: [id number] Impression: Normal Progression Plan: Discharge Procedures: None Progress Notes: S: 27 yo s/p primary low-transverse section. PPD/POD#2. Doing well. Denies PHILLIPS, CP, SOB, F/C, N/V, RUQ pain, changes in vision, vaginal discharge. Tolerating regular diet, ambulating, voiding on own, pain controlled, +BM. O: AFVSS Abdominal: Soft. Appropriately tender to palpation. Fundus firm, below umbilicus. Incision C/D/I. No erythema or drainage. Gilbert in place. Musc: FERREIRA. Resolving lower extremity edema. A/P: 27 yo s/p primary low-transverse section. PPD/POD#2. Doing well. Meeting all hospital milestones. Will discharge home today. Signing Physician: Alis Billingsley MD *Electronically Signed* 05/25/23 1108 ALIS BILLINGSLEY MD PATIENT NAME: LACY ACEVES PROGRESS NOTE DATE OF : [birth year] PHYSICIAN: ALIS BILLINGSLEY MD RPT #: [id number] REPORT IS CONFIDENTIAL AND NOT TO BE RELEASED WITHOUT AUTHORIZATION
--- NOTE | 2023-05-27 08:36 | OR ---
[facility] [address] [place], [place] [address] Signed DATE OF OPERATION: 05/23/2023 SURGEON: Jerri Zaman DO PREOPERATIVE DIAGNOSES: 1. Intrauterine at 39 weeks gestation. 2. Non-reassuring heart tracing. 3. Polyhydramnios. POSTOPERATIVE DIAGNOSES: 1. Intrauterine at 39 weeks gestation. 2. Non-reassuring heart tracing. 3. Polyhydramnios. PROCEDURE PERFORMED: Primary low transverse delivery. DEAN OF GIRLS: Roselia Noriega MD ANESTHESIA: Spinal with postoperative TAP block. ESTIMATED BLOOD LOSS: 650 mL. COMPLICATIONS: None. DRAINS: [place] to gravity. SPECIMEN: Cord blood for routine analysis and gases. FINDINGS: Delivery of viable male in the LOT position via primary low-transverse hysterotomy. 8 pounds 4 ounces with Apgars of 8 and 9. No nuchal cord. Clear amniotic fluid and normal placenta with no obvious explanation for intrapartum heart tracing. Normal uterus, bilateral ovaries and incidental right paratubal cyst. Electronically Signed By: JERRI ZAMAN DO (JD) 05/27/23 0836 PATIENT NAME: LACY ACEVES OPERATIVE REPORT DATE OF : [birth year] REPORT #: [id number] PHYSICIAN: JERRI ZAMAN DO (JD) PCP: PRATEEK MARIE MD REPORT IS CONFIDENTIAL AND NOT TO BE RELEASED WITHOUT AUTHORIZATION [facility] [address] [place], [place] [address] Signed INDICATIONS: Ms. Aceves is a very pleasant 27-year-old G3, P2, with IUP at 39 weeks gestation, who presented for elective induction of labor. The patient upon presentation had reassuring heart tracing, although somewhat tachycardic. A Cytotec vaginal suppository was placed per protocol and heart tracing demonstrated recurrent late and variable decelerations. I presented to the labor room where artificial rupture of membranes was performed and internal monitors were placed. Intrauterine resuscitation briefly improved the status, however, baby developed again recurrent late and variable decelerations. Decision was made to proceed with primary low transverse delivery. Risks, benefits, and alternatives were discussed in detail with the patient. The patient understands and wishes to proceed with the procedure. TECHNIQUE: The patient was taken to the operating room where time-out was performed to confirm correct patient and correct procedure. Spinal anesthesia was adequately established. The patient was prepped and draped in the supine position with a bump under the right hip. ICPs were on and running and the patient received Ancef 3 g preoperatively per SCIP protocol. No heparin was given and the patient has an allergy to azithromycin, so this was held. Once spinal was noted to be adequate, a Pfannenstiel skin incision was made using surgical scalpel approximately 2 to 3 cm above the pubic symphysis and carried down to the fascia. Fascia was nicked in the midline and fascial incision was extended bilaterally using curved Camarena scissors. The fascia was grasped with Kavon's, elevated, and the underlying rectus muscles dissected up bluntly and sharply. Rectus was divided in the midline and the peritoneum was entered bluntly. Peritoneal incision was extended cephalad and caudad using blunt and sharp dissection. Lower uterine segment was identified and the pelvis was clear of any adhesions. An Aniket self retractor was placed and hysterotomy was performed using a surgical scalpel. Amnion was ruptured for clear fluid. Hysterotomy was extended bilaterally using blunt dissection and the surgeon's hand was placed in the uterine cavity, elevated into the abdomen, delivered with the assistance of fundal pressure in the LOT position. No nuchal cord was identified and normal-appearing cord after delivery was accomplished. was vigorous and cried. Cord was doubly clamped and cut and the handed to the waiting pediatric team for further care. Cord blood was obtained for gases and routine analysis. Placenta was expressed, intact with a centrally inserted three-vessel cord and no abnormalities or evidence of abruption was noted. Pitocin was administered per protocol. Some brisk bleeding from the right uterine vessel was noted. This was quickly made hemostatic with 0 Monocryl. Hysterotomy was then closed in two layers of 0 Monocryl, the 1st being a running locked layer and the 2nd being a running imbricating layer in the vertical manner. The pelvis was irrigated and found to be hemostatic. Normal uterus and ovaries were identified and there was an incidental right paratubal cyst noted. Once hemostasis was appreciated, the Aniket retractor was removed and Electronically Signed By: JERRI TESFAYE) DO CORDELL 05/27/23 0836 PATIENT NAME: LACY ACEVES OPERATIVE REPORT DATE OF : [birth year] REPORT #: [id number] PHYSICIAN: JERRI ZAMAN DO (JD) PCP: PRATEEK MARIE MD REPORT IS CONFIDENTIAL AND NOT TO BE RELEASED WITHOUT AUTHORIZATION [address] [address] Signed peritoneum was reapproximated using 2-0 Vicryl in a running nonlocked manner. Rectus was made hemostatic with judicious use of Bovie electrocautery and irrigated. The rectus was then plicated in the midline with three interrupted sutures of 0 Vicryl. Fascia was reapproximated using 0 Vicryl in a running nonlocked manner. Subcu was irrigated and made hemostatic with Bovie electrocautery. Subcu was reapproximated using 3-0 Vicryl in a running nonlocked manner. Skin was reapproximated using surgical jan. The uterus was Crede'd for a scant amount of blood and the patient remained in the OR for postoperative TAP block per Anesthesia. Sponge, needle, and instrument count was correct x2 at the end of the procedure. Dr. Noriega was present and participated in all portions of the procedure. DO YOLY [place]/MODL /[id number] Copies: ~ Electronically Signed By: JERRI ZAMAN DO (JD) 05/27/23 0836 PATIENT NAME: LACY ACEVES OPERATIVE REPORT DATE OF : [birth year] REPORT #: [id number] PHYSICIAN: JERRI ZAMAN DO (JD) PCP: PRATEEK MARIE MD REPORT IS CONFIDENTIAL AND NOT TO BE RELEASED WITHOUT AUTHORIZATION
== END 2023-05-25 12:35 | disposition home or self-care (01) | DRG 788 ==
LOC: FBC 00:01
PROVIDERS: ADMIT Obstetrics & Gynecology; ATTEND Obstetrics & Gynecology
PROC: 4A033R1 Measurement of Arterial Saturation, Peripheral, Percutaneous Approach (ICD-10-PCS; 2023-05-23)
PROC: 10D00Z1 Extraction of Products of Conception, Low, Open Approach (ICD-10-PCS; principal; 2023-05-23 05:26)
DX: O40.3XX0 Polyhydramnios, third trimester, not applicable or unspecified (principal); O76 Abnormality in fetal heart rate and rhythm complicating labor and delivery; Z3A.39 39 weeks gestation of pregnancy; Z37.0 Single live birth; Z87.891 Personal history of nicotine dependence; O99.214 Obesity complicating childbirth
CPT/HCPCS: 01961; 36415; 76942; 80307; 82803; 85027; 86850; 86900; 86901; A9270; J0690; J1100; J1650; J1885; J2001; J2274; J2405; J2590; J2795; J3010; J7121

== ENCOUNTER 2024-08-15 19:15 | Emergency (ER) | payer OTHER ==
[~2024-08-15] VITALS: Ht 152.4 cm; Wt 101.5 kg
[~2024-08-15 19:15] MED LIST changes: -CALCIUM CARBONATE 500 MG CHEW PO PRN; -LACTATED RINGER'S 1,000 ML IV SCH; -MAGNESIUM HYDROXIDE/AL HYDROX 30 ML CUP PO PRN; -miSOPROStoL 25 MCG TAB PV SCH
[2024-08-15] MEDS ORDERED: NEXPLANON68 MG SUB-Q (19:35)
[2024-08-15] MEDS ORDERED: ASPIRIN 325 MG TAB PO ONE (19:45)
[2024-08-15 19:54] LABS: BASOPHILS 0.5 % (0-2); EOSINOPHILS 2.7 % (0-6); HEMATOCRIT 33.2 % (35.0-50.0); HEMOGLOBIN 10.7 g/dL (12.0-18.0); LYMPHOCYTES 25.7 % (24-44); MCH 21.6 (27-36); MCHC 32.3 g/dl (30-36); MCV 66.8 fl (81-99); MONOCYTES 5.6 % (0-12); NEUTROPHILS 65.5 % (39-80); PLATELET COUNT 583 K/uL (140-440); RBC 4.96 M/ul (4.3-5.7)
[2024-08-15] MEDS ORDERED: KETOROLAC TROMETHAMINE 30 MG/ML VIAL IV ONE (20:00)
[2024-08-15] MEDS ORDERED: FAMOTIDINE 20 MG/ 2 ML VIAL IV ONE (20:00)
[2024-08-15 20:20] LABS: ALBUMIN 3.4 g/dL (3.4-5.0); ALBUMIN/GLOBULIN RATIO 0.79 (1.1-2.4); ALKALINE PHOSPHATASE 124 U/L (46-116); ALT (SGPT) 30 U/L (14-59); ANION GAP 10.7 (7-21); AST (SGOT) 13 U/L (15-37); BILIRUBIN, TOTAL 0.2 mg/dL (0.2-1.0); BUN/CREATININE RATIO 15.47 (6.0-28.6); CALCIUM 8.3 mg/dL (8.5-10.1); CARBON DIOXIDE 27 mmol/L (21-32); CHLORIDE 103 mmol/L (98-107); CREATININE, SERUM 0.84 mg/dL (0.55-1.02); GLOMERULAR FILTRATION RATE,EST 96 mL/min (>60); POTASSIUM 3.7 mmol/L (3.5-5.1); PROTEIN, TOTAL 7.7 g/dL (6.4-8.2); UREA NITROGEN 13 mg/dL (7-18)
[2024-08-15 20:48] VITALS: BP 113/70
--- NOTE | 2024-08-16 20:54 | EKG ---
[facility] [address] [facility] [place], [place] [address] Signed Normal sinus rhythm Normal ECG Confirmed by Jessica Howell MD () on 08/16/2024 8:54:38 PM Electronically Signed By: JESSICA HOWELL MD 08/16/242053 PATIENT NAME: LACY ACEVES Electrocardiogram DATE OF : [birth year] PHYSICIAN: JESSICA HOWELL MD REPORT #: [id number] REPORT IS CONFIDENTIAL AND NOT TO BE RELEASED WITHOUT AUTHORIZATION
== END 2024-08-15 20:48 | disposition home or self-care (01) ==
LOC: ED 19:15
PROVIDERS: Internal Medicine
DX: M94.0 Chondrocostal junction syndrome [Tietze] (principal); Z88.0 Allergy status to penicillin; Z88.1 Allergy status to other antibiotic agents; Z87.891 Personal history of nicotine dependence
CPT/HCPCS: 36415; 71045; 80053; 83735; 83880; 84484; 84702; 85025; 85060; 85379; 93005; 93010; 96374; 96375; 99285-25; J1885

== ENCOUNTER 2024-09-26 10:19 | Emergency (ER) | payer OTHER ==
[~2024-09-26] VITALS: Ht 152.4 cm; Wt 101.9 kg
[~2024-09-26 10:19] MED LIST changes: +NEXPLANON68 MG SUB-Q
[2024-09-26] MEDS ORDERED: BENZONATATE100 MG PO (10:29)
[2024-09-26] MEDS ORDERED: VENTOLIN HFA18 GM (10:29)
[2024-09-26] MEDS ORDERED: DOXYCYCLINE MO100 MG PO (10:29)
[2024-09-26 11:20] LABS: BASOPHILS 0.4 % (0.1-1.2); EOSINOPHILS 3.5 % (0.7-5.8); HEMATOCRIT 39.9 % (34.1-44.9); HEMOGLOBIN 12.2 g/dL (11.2-15.7); LYMPHOCYTES 15.8 % (19.3-51.7); MCH 21.4 PG (25.6-32.2); MCHC 30.6 g/dL (32.2-35.5); MCV 70.1 fL (79.4-94.8); MONOCYTES 6.2 % (4.7-12.5); NEUTROPHILS 73.7 % (34.0-71.1); PLATELET COUNT 516 K/uL (182-369); RBC 5.69 M/uL (3.93-5.22)
[2024-09-26 11:36] LABS: ALBUMIN 3.4 g/dL (3.4-5.0); ALBUMIN/GLOBULIN RATIO 0.65 (1.1-2.4); ANION GAP 15.3 (7-21); BILIRUBIN, TOTAL 0.3 mg/dL (0.2-1.0); BUN/CREATININE RATIO 6.25 (6.0-28.6); CREATININE, SERUM 0.8 mg/dL (0.55-1.02); POTASSIUM 3.3 mmol/L (3.5-5.1); PROTEIN, TOTAL 8.6 g/dL (6.4-8.2)
[2024-09-26 12:06] VITALS: BP 112/78
== END 2024-09-26 12:07 | disposition home or self-care (01) ==
LOC: ED 10:19
PROVIDERS: Emergency Medicine
DX: J06.9 Acute upper respiratory infection, unspecified (principal); Z79.899 Other long term (current) drug therapy; Z88.1 Allergy status to other antibiotic agents; Z87.891 Personal history of nicotine dependence
CPT/HCPCS: 36415; 71045; 80053; 85025; 99285-25